=== PATIENT | male | born 1955 | race Caucasian/White ===

== ENCOUNTER 2023-03-01 13:54 | Outpatient (REF) | payer SELFPAY ==
--- NOTE | 2023-03-01 16:02 | MHC.AU.CER ---
Cerumen Removal- Binaural Date of Visit: 03/01/23 Medical Conditions: Fullness in Ear(s) Medications: No Medications of Concern for Cerumen Removal Procedure: Right Ear: Unusual Findings: Deeply Impacted Cerumen Prior to Removal: Complete Occlusion Outcome of Procedure: Encountered difficulty removing cerumen. Most cerumen was removed. Other: Slight abrasion to canal - Redness, No bleeding Left Ear: Unusual Findings: Deeply Impacted Cerumen Prior to Removal: Complete Occlusion Outcome of Procedure: Encountered difficulty removing cerumen. Very little to no cerumen was able to be removed. Other: Cerumen still present deep in canal; however, enough removed to lessen impaction. Recommendations: Use of cerumen drops, such as Debrox or EarWaxMD Recommendations (Other): Jaylen reported noticeable improvement in feeling of fullness in his ears, right greater than left. Recommend the use of EarWax MD drops to dissolve remaining cerumen. If still present, recommend complete removal by PCP or ENT. Diagnosis Code(s): Primary Diagnosis: H61.23 Impacted Cerumen, Bilateral Signature: Provider: Patricia Acevedo, [facility]
== END 2023-03-01 13:55 | disposition home or self-care (01) ==
LOC: HO.HAP 13:54
PROVIDERS: Visit Provider Internal Medicine
DX: Z46.1 Encounter for fitting and adjustment of hearing aid (principal); H61.23 Impacted cerumen, bilateral
CPT/HCPCS: 92700